=== PATIENT | male | born 1970 | race Hispanic/Latino ===

== ENCOUNTER 2017-04-30 14:01 | Inpatient (IN) | payer OTHER ==
[2017-04-30 14:07] VITALS: O2SAT 99
--- NOTE | 2017-04-30 15:18 | RAD ---
HISTORY: clearance COMPARISON: No prior. FINDINGS: LUNGS: No active pulmonary disease. PLEURA: No significant pleural effusion identified, no pneumothorax apparent. CARDIOVASCULAR: Normal. OSSEOUS STRUCTURES: No significant abnormalities. VISUALIZED UPPER ABDOMEN: Normal. OTHER FINDINGS: None. IMPRESSION: No active disease.
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
[2017-04-30 15:55] LABS: BASO % 0.2 % (0.0-2.0); HEMATOCRIT 38.6 % (35.0-51.0); LYMPH % 11.5 % (20.0-40.0); MEAN CELL VOLUME 101.6 fl (80.0-94.0); MEAN CORPUSCULAR HEMOGLOBIN 33.4 pg (27.0-31.0); MEAN CORPUSCULAR HGB CONC 32.9 g/dL (33.0-37.0); MEAN PLATELET VOLUME 8.5 fl (7.2-11.7); MONO # 0.8 K/uL (0.0-0.8); MONO % 9.2 % (0.0-10.0); NEUT % 79.1 % (50.0-75.0); NRBC % 0.1 % (0.0-0.0); WHITE BLOOD COUNT 8.8 K/uL (4.8-10.8)
[2017-04-30 16:13] LABS: ALB/GLOB RATIO 1.6 (1.0-2.1); ALCOHOL SERUM < 10 mg/dl (0-10); ALKALINE PHOSPHATASE 63 U/L (38-126); ALT/SGPT 77 U/L (21-72); AST/SGOT 72 U/L (17-59); BILIRUBIN,TOTAL 0.9 mg/dl (0.2-1.3); BLOOD UREA NITROGEN 16 mg/dl (9-20); CALCIUM 8.8 mg/dL (8.4-10.2); CARBON DIOXIDE 22 mmol/L (22-30); CHLORIDE 107 mmol/L (98-107); GFR AFRICAN-AMERICAN > 60; GLUCOSE,RANDOM 89 mg/dL (75-110); POTASSIUM 3.6 MMOL/L (3.6-5.0); SODIUM 142 mmol/l (132-148); TOTAL PROTEIN 6.7 G/DL (6.3-8.2)
--- NOTE | 2017-04-30 16:44 | CT ---
PROCEDURE: CT HEAD WITHOUT CONTRAST. HISTORY: trauma COMPARISON: Comparison is made to the previous study dated 07/12/2013 TECHNIQUE: Axial computed tomography images were obtained through the head/brain without intravenous contrast. Radiation dose: Total exam DLP = 1267.97 mGy-cm. This CT exam was performed using one or more of the following dose reduction techniques: Automated exposure control, adjustment of the mA and/or kV according to patient size, and/or use of iterative reconstruction technique. FINDINGS: HEMORRHAGE: No intracranial hemorrhage. BRAIN: No mass effect or edema. No atrophy or chronic microvascular ischemic changes. VENTRICLES: Unremarkable. No hydrocephalus. CALVARIUM: Unremarkable. PARANASAL SINUSES: Unremarkable as visualized. No significant inflammatory changes. MASTOID AIR CELLS: Unremarkable as visualized. No inflammatory changes. OTHER FINDINGS: None. IMPRESSION: No evidence of acute intracranial hemorrhage intracranial collection mass effect or midline shift.
[2017-04-30 19:54] LABS: RBC URINE 2 /hpf (0-3); URINE BACTERIA RARE (<OCC); URINE BILIRUBIN NEGATIVE (NEGATIVE); URINE BLOOD NEGATIVE (NEGATIVE); URINE COLOR YELLOW (YELLOW); URINE GLUCOSE (UA) NEG (Normal); URINE KETONE 80 mg/dL (NEGATIVE); URINE LEUKOCYTE ESTERASE NEG Leu/uL (Negative); URINE PROTEIN 30 mg/dL (NEGATIVE); WBC URINE 1 /hpf (0-5)
[2017-05-01] MEDS ORDERED: DiphenhydrAMINE 50 mg/ml Inj IM PRN (03:07)
[2017-05-01] MEDS ORDERED: Magnesium Hydroxide Susp 30 ml UD PO PRN (03:07)
[2017-05-01] MEDS ORDERED: Alum-Mag Hydrox-Simethicone Susp (30 mL) PO PRN (03:07)
[2017-05-01 07:49] LABS: T4 11.2 ug/dl (5.5-11.0)
[2017-05-01 08:02] LABS: THYROID STIMULATING HORMONE 1.84 mIU/ML (0.46-4.68)
--- NOTE | 2017-05-01 10:49 | CARD ---
APPROVED REPORT EKG Measurement Heart [id number] <Conclusion> Normal sinus rhythm Normal ECG
--- NOTE | 2017-05-01 11:22 | CP.PCM.CON ---
History of Present Illness - History of Present Illness History of Present Illness: 46 yo male admitted to psyche unit because of erratic and combative behaviour. Review of Systems - Review of Systems All systems: reviewed and no additional remarkable complaints except (aside from those mentioned above, 12 point system review were negative by me) Past Patient History - Past Social History Smoking Status: Current Some Days Smoker Alcohol: Occasional Drugs: Denies - CARDIAC Hx Cardiac Disorders: No - PULMONARY Hx Respiratory Disorders: No Hx Tuberculosis: No - NEUROLOGICAL Hx Neurological Disorder: No HX Cerebrovascular Accident: No Hx Seizures: No - HEENT Other/Comment: very poor vision; requires glasses - RENAL Hx Chronic Kidney Disease: No - ENDOCRINE/METABOLIC Hx Endocrine Disorders: No - HEMATOLOGICAL/ONCOLOGICAL Hx Blood Disorders: No Hx Cancer: No Hx Human Immunodeficiency Virus (HIV): No - INTEGUMENTARY Other/Comment: skin is mottled; sts these are bruises from yoga positions - MUSCULOSKELETAL/RHEUMATOLOGICAL Hx Musculoskeletal Disorders: No - GASTROINTESTINAL Hx Gastrointestinal Disorders: No - GENITOURINARY/GYNECOLOGICAL Hx Sexually Transmitted Disorders: No - PSYCHIATRIC Hx Schizophrenia: Yes Hx Substance Use: Yes (mj) - SURGICAL HISTORY Hx Surgeries: No - ANESTHESIA Hx Anesthesia: No Meds Allergies/Adverse Reactions: Allergies Allergy/AdvReac Type Severity Reaction Status Date / Time No Known Allergies Allergy Verified 04/30/17 14:04 - Medications Medications: Current Medications Acetaminophen (Tylenol 325mg Tab) 650 mg PO Q4 PRN PRN Reason: pain level 1-7 Al Hydrox/Mg Hydrox/Simethicone (Maalox Plus 30 Ml) 30 ml PO Q4 PRN PRN Reason: Dyspepsia Diphenhydramine HCl (Benadryl) 50 mg IM Q6 PRN PRN Reason: Extrapyramidal S/S Unable PO Diphenhydramine HCl (Benadryl) 50 mg PO Q6 PRN PRN Reason: Extrapyramidal Symptoms Diphenhydramine HCl (Benadryl) 50 mg PO HS PRN PRN Reason: Sleep Haloperidol (Haldol) 5 mg PO Q4 PRN PRN Reason: Agitation Haloperidol Lactate (Haldol) 5 mg IM Q4 PRN PRN Reason: Agitation, Unable to Take PO Lorazepam (Ativan) 2 mg IM Q4 PRN PRN Reason: Anxiety/Agitation,Unable PO Lorazepam (Ativan) 2 mg PO Q4 PRN PRN Reason: Anxiety/Agitation Magnesium Hydroxide (Milk Of Magnesia) 30 ml PO HS PRN PRN Reason: Constipation Physical Exam - Constitutional Appears: No Acute Distress - Head Exam Head Exam: ATRAUMATIC - Eye Exam Eye Exam: absent: Scleral icterus - ENT Exam ENT Exam: Mucous Membranes Moist - Neck Exam Neck exam: Negative for: Meningismus - Respiratory Exam Respiratory Exam: absent: Rhonchi, Wheezes, Respiratory Distress - Cardiovascular Exam Cardiovascular Exam: REGULAR RHYTHM, +S1, +S2 - GI/Abdominal Exam GI & Abdominal Exam: Soft. absent: Tenderness - Rectal Exam Rectal Exam: Deferred - Extremities Exam Extremities exam: Negative for: pedal edema - Back Exam Back exam: NORMAL INSPECTION - Neurological Exam Neurological exam: Alert, Oriented x3 - Psychiatric Exam Psychiatric exam: Normal Affect - Skin Skin Exam: Dry, Intact Results - Vital Signs Recent Vital Signs: Last Vital Signs Temp 98.3 F 04/30/17 14:04 Pulse 81 04/30/17 22:49 Resp 18 04/30/17 14:04 BP 145/83 04/30/17 14:04 Pulse Ox 99 04/30/17 21:33 - Labs Result Diagrams: 04/30/17 15:30 04/30/17 15:30 Labs: Laboratory Results - last 24 hr 05/01/17 07:02 Triglycerides 55 Cholesterol 90 LDL Cholesterol Direct 46 HDL Cholesterol 35 Thyroxine (T4) 11.2 H TSH 3rd Generation 1.84 Assessment & Plan (1) Schizophrenia Status: Acute Comment: psyche is managing
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
--- NOTE | 2017-05-02 16:08 | PCM.PYCHPN ---
Psychiatric Progress Note - Psychiatric Progress Note Patient seen today, length of contact: chart review case discusssed with team Patient Chief Complaint: not really sure neighbors called the header up 2nd to teacup dropping from window (pt 's) Problems Identified/Issues Discussed: alteration in cognition behavior self Medical Problems: per chart Diagnostic Results: per psychiatry per medicine per nursing per social work DSM 5 Symptoms Update: alteration in behavior, paranoia, reportedly throwing things from window, spreading feces over valles of apartment Medication Change: Yes (risperidone 0.5mg po hs) Medical Record Reviewed: Yes Mental Status Examination - Cognitive Function Orientation: Person, Place, Time Attention: WNL Concentration: WNL Association: WNL Fund of Knowledge: WNL - Mood Mood: Other (denies ?paranoia) - Affect Affect: Constricted - Formal Thought Process Formal Thought Process: Paranoia - Homicidal Ideation Homicidal Ideation: No Goal/Treatment Plan - Goal/Treatment Plan Need for Continued Stay: Remain at risks for inpatient hospitalization, Severe functional impairment Progress Toward Problem(s) and Goals/Treatment Plan: inpt milieu vital signs and clinical observation per protocol and per clinical status hospitalist consult pt defers need for inpt admission-admission presentation was discussed with pt by team--pt requests to submit a 48 hr notice-48hr notice explained to pt including possible screening for involuntary admission, ability to recind 48 hr notice + teach back noted-pt submitted 48 hr notice per staff will end [phone] [id number] prn medications in case of changes in clinical acute status and or pt request discharge planning in progress Estimated Date of D/C: 05/07/17 - Smoking Cessation Smoking Cessation Initiated: No Reason for not providing: deferred
[2017-05-02 20:48] VITALS: RESP 18
[2017-05-03 10:42] VITALS: BP 104/72; PULSE 89; TEMP 97.3
--- NOTE | 2017-05-03 11:17 | PCM.PYCHPN ---
Psychiatric Progress Note - Psychiatric Progress Note Patient seen today, length of contact: in treatment team Patient Chief Complaint: you can talk to dr. connell, he will clear my name Problems Identified/Issues Discussed: pt refusing medications. has signed a 48 hour notice. paranoid and not willing to talk to the treatment team today. refused to sign treatment team. wanted this loan underwriter to only talk to regis connell, and pt refused to answer any questions about his prior hosptializations or treatment. family has called to [facility] and left messages of concern for pt and family safety if he is discharged. (apparently were not available when screener called at 4am to provide collateral.) pt minimizing symptoms; recent erratic behaviors reported- throwing things out window, spreading feces on valles of home, family evicted, etc. left message with dr. connell's voice mail. Medication Change: No (risperidone 0.5mg po hs pt refusing) Medical Record Reviewed: Yes Mental Status Examination - Cognitive Function Orientation: Person, Place, Time Memory: Intact Attention: WNL Concentration: WNL Association: WNL Fund of Knowledge: WNL Decription of patient's judgement and insights: poor i/j - Mood Mood: Other (irritated) - Affect Affect: Blunted - Speech Speech: Appropriate - Formal Thought Process Formal Thought Process: Paranoia Psychotic Thoughts and Behaviors: grossly disorganized behaviors in the community. - Suicidal Ideation Suicidal Ideation: No - Homicidal Ideation Homicidal Ideation: No Goal/Treatment Plan - Goal/Treatment Plan Need for Continued Stay: Remain at risks for inpatient hospitalization, Severe functional impairment Progress Toward Problem(s) and Goals/Treatment Plan: schizophrenia, paranoid type pt refusing medications family concerned with pt's safety pt not agreeing or participating in treatment. unable to reach his outpt provider directly. pt appears to be a danger to self/other and risk if discharged to community- will rescreen for [facility] involuntary assessment encourage pt to participate in treatment Estimated Date of D/C: 05/07/17
--- NOTE | 2017-05-03 16:21 | PCM.PYCHDC ---
Mental Status Examination - Mental Status Examination Orientation: Person, Place, Situation, Time Memory: Intact Mood: Anxious Affect: Blunted Speech: Appropriate Attention: Poor Concentration: WNL Association: Loose Fund of Knowledge: WNL Formal Thought Process: Paranoia, Loosening of associations Description of patient's judgement and insight: poor i/j, minimizing behaviors Psychotic Thoughts and Behaviors: grossly disorganized behaviors in the community., patient is paranoid, not agreeing to assessment or treatment. Suicidal Ideation: No Current Homicidal Ideation?: No Plan: pt is denying any suicidal or homicidal thoughts/plan or intent Discharge Summary - Discharge Note Reason for Hospitalization: bizarre behaviors at home leading to family being asked to leave their apartment by landlord. pt apparently throwing objects out window- pt denies Laboratory Data: Abnormal Lab Results 05/01/17 07:02 Hemoglobin A1c 5.5 Consultations:: List each consultation separately and include: 1. Reason for request. 2. Findings. 3. Follow-up Consultations: screened 2 x by [facility]. called dr. regis connell at pt's request, but no return call as of time of discharge. seen by hospitalist Summary of Hospital Course include:: 1. Description of specific treatment plan utilized for patients during their course of treatmen. 2. Summarize the time- course for resolution of acute symptoms and/or regressed behaviors. 3. Describe issues identified and worked on during hospitalization. 4. Describe medication utilized. 5. Describe medical problems identified and treated. 6. Reassessment of suicide risk Summary of Hospital Course: pt was admitted to [facility] and oriented to the unit. pt was placed on routine safety protocols. pt was started on medications- risperdal, but refused to take them. pt tried to elope on two different occasions from the unit on the weekend. pt was refusing to sign his treatment plan and refused to talk about his mental health history with the treatment team. pt submitted a 48 hour notice upon admission. he was screened twice and not found by [facility] screeners to meet criteria for involuntary hospitalization. as the patient was calm, denying suicidal or homicidal thoughts, and despite his paranoid thoughts was not posing an immediate risk to harm self or others, he was discharged as his 48 hour notice . i discussed the AMA form with the pt- benefits of staying included medications and therapy to stabilize his paranoid thoughts, help improve insight and stabilize behaviors as well as to arrange appropriate aftercare. risks explained included continued paranoid thoughts, behavioral decompensation with loss of housing and continued alienation from family/neighbors and possible harm to property and self. pt signed himself out of the hospital against medical advice. no medication prescriptions were given as pt was refusing medications. if pt re-presents or is re-referred to the ER he should be screened for involuntary hospitalization at that time - Final Diagnosis (DSM 5) Condition upon Discharge: STABLE DSM 5: schizophrenia, paranoid type Disposition: AGAINST MEDICAL ADVICE Follow-up Treatment Plan: schizophrenia, paranoid type pt refusing medications family concerned with pt's safety pt not agreeing or participating in treatment. unable to reach his outpt provider directly. pt appears to be a danger to self/other and risk if discharged to community- will rescreen for [facility] involuntary assessment encourage pt to participate in treatment - Smoking Cessation Smoking Cessation Medication prescribed: No Reason for not providing: declines any treatment - Antipsychotic Medications Pt discharged on 2 or more routine antipsychotic medications: No - Justification for 2 or more meds Justification other than those listed above:: pt is refusing all medications
== END 2017-05-03 16:15 | disposition left against medical advice (07) | DRG 430 ==
LOC: H.ER 14:01 → H.EROBSV 14:23 → OBSVTOIN 21:05 → H.ERHOLD 21:40 → H.PSYCH 22:40
PROVIDERS: ADMIT Psychiatry & Neurology Psychiatry; ATTEND Psychiatry & Neurology Psychiatry
DX: F20.0 Paranoid schizophrenia (principal); F17.210 Nicotine dependence, cigarettes, uncomplicated

== ENCOUNTER 2017-05-09 00:59 | Emergency (ER) | payer SELFPAY ==
[2017-05-09 01:07] VITALS: BP 126/58; PULSE 75; RESP 18; TEMP 98.4; O2SAT 99
[2017-05-09 01:40] LABS: BASO % 0.4 % (0.0-2.0); EOS # 0.1 K/uL (0.0-0.7); EOS % 1.4 % (0.0-4.0); HEMATOCRIT 37.9 % (35.0-51.0); LYMPH # 1.9 K/uL (1.0-4.3); LYMPH % 22.8 % (20.0-40.0); MEAN CELL VOLUME 102.6 fl (80.0-94.0); MEAN CORPUSCULAR HEMOGLOBIN 34.7 pg (27.0-31.0); MEAN CORPUSCULAR HGB CONC 33.8 g/dL (33.0-37.0); MEAN PLATELET VOLUME 7.6 fl (7.2-11.7); MONO # 0.7 K/uL (0.0-0.8); MONO % 8.4 % (0.0-10.0); NEUT # 5.6 K/uL (1.8-7.0); NRBC % 0.1 % (0.0-0.0); RED CELL DISTRIBUTION WIDTH 14.2 % (11.5-14.5); WHITE BLOOD COUNT 8.3 K/uL (4.8-10.8)
[2017-05-09 01:48] LABS: ALB/GLOB RATIO 1.5 (1.0-2.1); ALCOHOL SERUM < 10 mg/dl (0-10); ALKALINE PHOSPHATASE 62 U/L (38-126); ALT/SGPT 58 U/L (21-72); AST/SGOT 33 U/L (17-59); BILIRUBIN,TOTAL 0.2 mg/dl (0.2-1.3); BLOOD UREA NITROGEN 12 mg/dl (9-20); CARBON DIOXIDE 22 mmol/L (22-30); CHLORIDE 108 mmol/L (98-107); GFR AFRICAN-AMERICAN > 60; GLUCOSE,RANDOM 94 mg/dL (75-110); POTASSIUM 4.5 MMOL/L (3.6-5.0); SODIUM 138 mmol/l (132-148); TOTAL PROTEIN 6.5 G/DL (6.3-8.2)
--- NOTE | 2017-05-09 01:49 | ED PDOC ---
HPI: Psych/Substance Abuse Time Seen by Provider: 05/09/17 01:10 Chief Complaint (Nursing): Medical Clearance Chief Complaint (Provider): Psychiatric evaluation History Per: Patient, EMS History/Exam Limitations: no limitations Onset/Duration Of Symptoms: Hrs (patient has been under arrest for 4x hours.) Current Symptoms Are (Timing): Still Present Severity: Moderate Associated Symptoms: denies: Suicidal Thoughts, Suicidal Plan Additional Complaint(s): 46 year old male with a pertinent medical history of schizophrenia is brought into the ED by EMS for a psychiatric evaluation and medical clearance. Patient has been under arrest for the past 4x hours for shoplifting at 7[address]. He admits to drinking 2x glasses of wine prior to that. On 05/03/2017, he was discharged from this hospital for schizophrenia. He has not followed up with his psychiatrist since his discharge, but has an appointment for 05/12/2017. He denies having suicidal ideations and homicidal ideations, PMD: not provided Past Medical History Reviewed: Historical Data, Nursing Documentation, Vital Signs Vital Signs: Last Vital Signs Temp 98.4 F 05/09/17 01:02 Pulse 75 05/09/17 01:02 Resp 18 05/09/17 01:02 BP 126/58 L 05/09/17 01:02 Pulse Ox 99 05/09/17 01:02 - Medical History PMH: Schizophrenia Denies: Diabetes, Hepatitis, HIV, HTN, Chronic Kidney Disease, Seizures, Sexually Transmitted Disease - Surgical History Surgical History: No Surg Hx - Family History Family History: States: Unknown Family Hx - Social History Current smoker - smoking cessation education provided: Yes Alcohol: Occasional Drugs: Denies - Home Medications Home Medications: Ambulatory Orders Medication Instructions Recorded No Known Home Med 04/30/17 - Allergies Allergies/Adverse Reactions: Allergies Allergy/AdvReac Type Severity Reaction Status Date / Time No Known Allergies Allergy Verified 04/30/17 14:04 Review of Systems ROS Statement: Except As Marked, All Systems Reviewed And Found Negative Psych: Negative for: Suicidal ideation, Other (homicidal ideation) Physical Exam - Reviewed Nursing Documentation Reviewed: Yes Vital Signs Reviewed: Yes - Physical Exam Appears: Positive for: Well, Non-toxic, No Acute Distress Head Exam: Positive for: ATRAUMATIC, NORMOCEPHALIC Skin: Positive for: Normal Color, Warm, Dry Eye Exam: Positive for: EOMI, PERRL, Conjunctival injection ENT: Positive for: Other (tacky mucous membranes) Neck: Positive for: Normal, Supple Cardiovascular/Chest: Positive for: Regular Rate, Rhythm Respiratory: Positive for: Normal Breath Sounds. Negative for: Respiratory Distress Gastrointestinal/Abdominal: Positive for: Normal Exam, Soft. Negative for: Tenderness Extremity: Positive for: Normal ROM. Negative for: Deformity, Swelling Neurologic/Psych: Positive for: Alert, Oriented (3x) - Laboratory Results Result Diagrams: 05/09/17 01:32 05/09/17 01:32 - ECG O2 Sat by Pulse Oximetry: 99 (RA) Pulse Ox Interpretation: Normal Medical Decision Making Medical Decision Makin:10 Initial impression: 46 year old male with schizophrenia by history and alcohol intoxication. Initial plan: * alcohol serum * CMP * drug screen urinary * udip * CBC * crisis evaluation as ordered * reevaluation Scribe Attestation: Documented by Elena Hemphill, acting as a scribe for Shirley Roman MD. Provider Scribe Attestation: All medical record entries made by the Scribe were at my direction and personally dictated by me. I have reviewed the chart and agree that the record accurately reflects my personal performance of the history, physical exam, medical decision making, and the department course for this patient. I have also personally directed, reviewed, and agree with the discharge instructions and disposition. Disposition - Clinical Impression Clinical Impression: Schizophrenia Counseled Patient/Family Regarding: Diagnosis - Disposition Disposition: Routine/Home Disposition Time: 02:42 Condition: STABLE Additional Instructions: MEDICALLY AND PSYCHIATRICALLY STABLE FOR INCARCERATION Follow up as scheduled with your psychiatrist Instructions: Schizophrenia (ED)
== END 2017-05-09 03:01 | disposition home or self-care (01) ==
LOC: H.ER 00:59
DX: F20.9 Schizophrenia, unspecified (principal)
CPT/HCPCS: 80053; 85025; 99281; G0480

== ENCOUNTER 2017-05-11 23:07 | Emergency (ER) | payer OTHER ==
[2017-05-11 23:41] VITALS: BP 137/84; PULSE 93; RESP 16; TEMP 98; O2SAT 100
--- NOTE | 2017-05-12 00:17 | ED PDOC ---
HPI: General Adult Time Seen by Provider: 05/11/17 23:20 Chief Complaint (Nursing): Psychiatric Evaluation Chief Complaint (Provider): psych eval History Per: Patient History/Exam Limitations: no limitations Onset/Duration Of Symptoms: Mins Have you had recent travel within the past 21 days to any of the following countries: [place], [place], [place] or [place]?: No Current Symptoms Are (Timing): Better Additional Complaint(s): 46yo male with PMHx of schizophrenia, released from senior living this morning, presents to the ED to "verify that he is ok." Denies hallucinations, SI, HI, or any medical complaints. Of note, patient required restraints before provider interview due to agitation. Calm and cooperative upon provider interview. Past Medical History Reviewed: Historical Data, Nursing Documentation, Vital Signs Vital Signs: Last Vital Signs Temp 98.0 F 05/11/17 23:39 Pulse 93 H 05/11/17 23:39 Resp 16 05/11/17 23:39 BP 137/84 05/11/17 23:39 Pulse Ox 100 05/12/17 00:23 - Medical History PMH: Schizophrenia Denies: Diabetes, Hepatitis, HIV, HTN, Chronic Kidney Disease, Seizures, Sexually Transmitted Disease - Surgical History Surgical History: No Surg Hx - Family History Family History: States: No Known Family Hx - Social History Current smoker - smoking cessation education provided: Yes Alcohol: Occasional Drugs: Cannabis - Home Medications Home Medications: Ambulatory Orders Medication Instructions Recorded No Known Home Med 04/30/17 - Allergies Allergies/Adverse Reactions: Allergies Allergy/AdvReac Type Severity Reaction Status Date / Time No Known Allergies Allergy Verified 04/30/17 14:04 Review of Systems ROS Statement: Except As Marked, All Systems Reviewed And Found Negative Psych: Positive for: Other (no HI, no hallucinations ). Negative for: Suicidal ideation Physical Exam - Reviewed Nursing Documentation Reviewed: Yes Vital Signs Reviewed: Yes - Physical Exam Appears: Positive for: No Acute Distress (poor hygiene ) Head Exam: Positive for: ATRAUMATIC, NORMAL INSPECTION, NORMOCEPHALIC Skin: Positive for: Normal Color, Warm, Dry Cardiovascular/Chest: Positive for: Regular Rate, Rhythm. Negative for: Murmur , Tachycardia Respiratory: Positive for: Normal Breath Sounds. Negative for: Wheezing, Respiratory Distress Gastrointestinal/Abdominal: Positive for: Normal Exam, Soft. Negative for: Tenderness Extremity: Positive for: Normal ROM. 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 Patient evaluated and cleared by crisis with diagnosis of cannabis abuse as per Dr. Sofia. Patient stable for d/c. Advised to f/u w/ his PCP and psychiatrist and return to the ED with any worsening or concerning symptoms. Scribe Attestation: Documented by Chad Giordano acting as a scribe for Micheline Hampton MD. Provider Scribe Attestation: All medical record entries made by the Scribe were at my direction and personally dictated by me. I have reviewed the chart and agree that the record accurately reflects my personal performance of the history, physical exam, medical decision making, and the department course for this patient. I have also personally directed, reviewed, and agree with the discharge instructions and disposition. Disposition - Clinical Impression Clinical Impression: Cannabis abuse - Patient ED Disposition Is Patient to be Admitted: No Counseled Patient/Family Regarding: Studies Performed, Diagnosis, Need For Followup - Disposition Disposition: Routine/Home Disposition Time: 00:15 Condition: IMPROVED Additional Instructions: follow up with your primary doctor and psychiatrist return to the ED with any worsening or concerning symptoms. Instructions: Cannabis Abuse (ED)
== END 2017-05-12 00:40 | disposition home or self-care (01) ==
LOC: H.ER 23:07
DX: F12.10 Cannabis abuse, uncomplicated (principal); F20.9 Schizophrenia, unspecified; Z78.1 Physical restraint status

== ENCOUNTER 2017-05-12 13:06 | Observation (INO) | payer OTHER ==
--- NOTE | 2017-05-12 13:32 | ED PDOC ---
HPI: Psych/Substance Abuse Time Seen by Provider: 05/12/17 13:20 Chief Complaint (Nursing): Psychiatric Evaluation Chief Complaint (Provider): Psychiatric Evaluation History Per: Patient History/Exam Limitations: no limitations Onset/Duration Of Symptoms: Days Current Symptoms Are (Timing): Still Present Additional Complaint(s): 46 y/o male presents to the emergency department via EMS after noted to act in a bizarre behavior while throwing furniture out his window prior to arrival. Patient was also thought to be turning gas burners on in vacant apartment. Health inspector pawnshop detail stated that residence is uninhabitable.. Denies suicidal or homicidal ideation and auditory or visual hallucinations. Past Medical History Reviewed: Historical Data, Nursing Documentation, Vital Signs Vital Signs: Last Vital Signs Temp 99 F 05/12/17 13:08 Pulse 70 05/12/17 13:08 Resp 18 05/12/17 13:08 BP 116/61 05/12/17 13:08 Pulse Ox 99 05/12/17 13:08 - Medical History PMH: Schizophrenia Denies: Diabetes, Hepatitis, HIV, HTN, Chronic Kidney Disease, Seizures, Sexually Transmitted Disease - Surgical History Surgical History: No Surg Hx - Family History Family History: States: Unknown Family Hx - Living Arrangements Living Arrangements: With Family - Social History Current smoker - smoking cessation education provided: No Alcohol: None Drugs: Cannabis - Home Medications Home Medications: Ambulatory Orders Medication Instructions Recorded No Known Home Med 04/30/17 - Allergies Allergies/Adverse Reactions: Allergies Allergy/AdvReac Type Severity Reaction Status Date / Time No Known Allergies Allergy Verified 04/30/17 14:04 Review of Systems ROS Statement: Except As Marked, All Systems Reviewed And Found Negative Psych: Negative for: Suicidal ideation (or homicidal ideation), Other (auditory or visual hallucinations) Physical Exam - Reviewed Nursing Documentation Reviewed: Yes Vital Signs Reviewed: Yes - Physical Exam Appears: Positive for: Non-toxic, No Acute Distress Head Exam: Positive for: ATRAUMATIC, NORMAL INSPECTION, NORMOCEPHALIC Skin: Positive for: Normal Color, Warm, Dry Cardiovascular/Chest: Positive for: Regular Rate, Rhythm. Negative for: Murmur Respiratory: Positive for: Normal Breath Sounds. Negative for: Accessory Muscle Use, Respiratory Distress Neurologic/Psych: Positive for: Alert, Oriented - Laboratory Results Result Diagrams: 05/12/17 13:50 05/12/17 13:40 - ECG ECG Rhythm: Positive for: Sinus Rhythm (NSR 82BPM; NO ECTOPY NO ACUTE CHANGES NOTED.) O2 Sat by Pulse Oximetry: 99 (RA) Pulse Ox Interpretation: Normal - Progress ED Course And Treament: OLD ED RECORDS REVIEWED: Patient was seen in this emergency room on 05/09/2017, diagnosed with schizophrenia, and incarcerated. After patient was released from alf, he visited the emergency room again on 05/11/2017, diagnosed with cannabis abuse, advised to follow up with psychiatrist, and discharged home. CXR: NAD ativan 2 mg IM x [address] ROJAS ([facility] [place] DIAGNOSIS SCHIZOPHRENIA Medical Decision Making Medical Decision Making: Time: 13:20 Initial Impression: Psychiatric Evaluation Initial Plan: --Electrocardiogram STAT --Alcohol Serum STAT --COMP Metabolic Panel --Drug Screen, Urine --EKG-ED (EDNURTX) --CBC w/ differential --Chest Portable (RAD) --Urinalysis STAT --1:1 Observation CONT: Patient threat to self and others --Crisis Evaluation As Ordered --Reevaluation Time: 15:40 --Admit to hospital routine: ED Observation for acute pschotic episode under the care of Dr. Andrade Time: 16:40 --Restraint: Violent or harm to self/other and placed for combative behavior. Given Ativan 2mg IM without any improvement. Scribe Attestation: Documented by Alivia Garcia, acting as a scribe for Venkat Conway PA-C. Provider Scribe Attestation: All medical record entries made by the Scribe were at my direction and personally dictated by me. I have reviewed the chart and agree that the record accurately reflects my personal performance of the history, physical exam, medical decision making, and the department course for this patient. I have also personally directed, reviewed, and agree with the discharge instructions and disposition. ED OBSERVATION Date of observation admission: 05/12/17 Time of observation admission: 15:41 - Observation admission statement Patient is being placed in observation because:: MANAGEMENT/EVALUATION OF ACUTE PSYCHOTIC EPSIODE - Goals of Observation Goals of observation are:: PENDING BLOODWORK FOR ALCOHOL AND DRUGS. WILL HAVE CRISIS EVALUATE PATIENT. PATIENT MAY REQUIRE INVOLUNTARY ADMISSION AND TRANSFER TO [facility] Disposition - Clinical Impression Clinical Impression: Schizophrenia - Patient ED Disposition Is Patient to be Admitted: Transfer of Care - Disposition Disposition: Transfer of Care Disposition Time: 00:03 Condition: FAIR Patient Signed Over To: Rod Santana Handoff Comments: PENDING BED AVAILABILITY
[2017-05-12 14:00] LABS: BASO % 0.4 % (0.0-2.0); EOS # 0.1 K/uL (0.0-0.7); EOS % 0.7 % (0.0-4.0); HEMOGLOBIN 13.3 g/dL (12.0-18.0); LYMPH # 1.3 K/uL (1.0-4.3); LYMPH % 15.6 % (20.0-40.0); MEAN CELL VOLUME 102.1 fl (80.0-94.0); MEAN CORPUSCULAR HEMOGLOBIN 34.3 pg (27.0-31.0); MEAN CORPUSCULAR HGB CONC 33.6 g/dL (33.0-37.0); MEAN PLATELET VOLUME 7.4 fl (7.2-11.7); MONO # 0.5 K/uL (0.0-0.8); MONO % 6.5 % (0.0-10.0); NEUT # 6.2 K/uL (1.8-7.0); NEUT % 76.8 % (50.0-75.0); RBC 3.86 Mil/uL (4.40-5.90); RED CELL DISTRIBUTION WIDTH 13.9 % (11.5-14.5)
[2017-05-12 14:13] LABS: ALB/GLOB RATIO 1.6 (1.0-2.1); ALBUMIN 4.2 g/dL (3.5-5.0); ALT/SGPT 66 U/L (21-72); AST/SGOT 57 U/L (17-59); BLOOD UREA NITROGEN 16 mg/dl (9-20); CALCIUM 9.2 mg/dL (8.4-10.2); GFR AFRICAN-AMERICAN > 60; GFR NON-AFRICAN AMERICAN > 60
--- NOTE | 2017-05-12 15:29 | RAD ---
HISTORY: ROUTINE COMPARISON: Chest x-ray performed 04/30/17 TECHNIQUE: Chest, one view. FINDINGS: LUNGS: No focal consolidation. Please note that chest x-ray has limited sensitivity for the detection of pulmonary masses. PLEURA: No significant pleural effusion identified. No definite pneumothorax . CARDIOVASCULAR: The cardiomediastinal silhouette appears within normal limits of size. OSSEOUS STRUCTURES: Degenerative changes. VISUALIZED UPPER ABDOMEN: Unremarkable. OTHER FINDINGS: None. IMPRESSION: No focal consolidation, significant pleural effusion, or definite pneumothorax identified.
[2017-05-12 17:05] LABS: BARBITURATES, UR NEGATIVE (NEGATIVE); BENZODIAZEPINES, UR POSITIVE (NEGATIVE); OPIATES, UR NEGATIVE (NEGATIVE); PHENCYCLIDINE, UR NEGATIVE (NEGATIVE); SQUAMOUS EPITHIAL < 1 /hpf (0-5); URINE BACTERIA RARE (<OCC); URINE BILIRUBIN NEGATIVE (NEGATIVE); URINE BLOOD NEGATIVE (NEGATIVE); URINE CLARITY CLEAR (Clear); URINE COLOR YELLOW (YELLOW); URINE GLUCOSE (UA) NEG (Normal); URINE LEUKOCYTE ESTERASE NEG Leu/uL (Negative); URINE NITRATE NEGATIVE (NEGATIVE); URINE PROTEIN NEGATIVE (NEGATIVE); URINE UROBILINOGEN 0.2-1.0 mg/dL (0.2-1.0); WBC CLUMPS RARE /hpf
--- NOTE | 2017-05-12 23:54 | ED PDOC ---
- Laboratory Results Result Diagrams: 05/12/17 13:50 05/12/17 13:40 - ECG O2 Sat by Pulse Oximetry: 99 (RA) Medical Decision Making Medical Decision Making: Patient s/o from Venkat Conway PA-C at 0000 pending [facility] bed availability. Patient s/o to Dr. Hampton at 0700 pending [facility] bed availability. Scribe Attestation: Documented by Chad Giordano acting as a scribe for Rod Santana MD. Provider Scribe Attestation: All medical record entries made by the Scribe were at my direction and personally dictated by me. I have reviewed the chart and agree that the record accurately reflects my personal performance of the history, physical exam, medical decision making, and the department course for this patient. I have also personally directed, reviewed, and agree with the discharge instructions and disposition. Disposition - Clinical Impression Clinical Impression: Schizophrenia - POA Present On Arrival: None - Disposition Disposition: Transfer of Care Disposition Time: 15:40 Condition: STABLE Patient Signed Over To: Micheline Hampton Handoff Comments: pending [facility] bed availability
--- NOTE | 2017-05-13 07:16 | ED PDOC ---
- Laboratory Results Result Diagrams: 05/12/17 13:50 05/12/17 13:40 - ECG O2 Sat by Pulse Oximetry: 99 (RA) Pulse Ox Interpretation: Normal Medical Decision Making Medical Decision Making: Receiving Sign Out: Pt signed out to me by Dr. Santana pending [facility] bed availability. pt resting in bed in no distress signout [address] Jimenez pending [facility] bed availability Scribe Attestation: Documented by Palmira Davis acting as a scribe for Micheline Hampton MD. Provider Attestation: All medical record entries made by the Scribe were at my direction and personally dictated by me. I have reviewed the chart and agree that the record accurately reflects my personal performance of the history, physical exam, medical decision making, and the department course for this patient. I have also personally directed, reviewed, and agree with the discharge instructions and disposition. Disposition - Clinical Impression Clinical Impression: Schizophrenia - POA Present On Arrival: None - Disposition Disposition: Transfer of Care Disposition Time: 15:03 Condition: STABLE Patient Signed Over To: Jose Luis Jimenez (pend [facility]) Progress Note - Review of Symptoms Events since last encounter: 1148 Pt seen and evaluated by podiatry for blisters on feet.
--- NOTE | 2017-05-13 11:24 | CP.PCM.CON ---
History of Present Illness - History of Present Illness History of Present Illness: 46 year old unkempt male patient with PMHx of schizophrenia seen at bedside in ED as a podiatry consult for painful blisters to both feet. Patient states he has been wearing new shoes without socks since Wednesday. Patient states he noticed the blisters develop late Wednesday which he believes is from his new shoes. Patent reports pain 6/10 to all blisters. Patient denies taking any medications to alleviate the pain. Patient is also complaining of painful ingrown toenails to bilateral great toes. Patient Patient denies N/V/F/C/D/ SOB. No other pedal complaints at this time. PMHx: Schizophrenia PSH: N/A FH: noncontributory to chief complaint Meds: None All: NKDA Review of Systems - Review of Systems Review of Systems: 14 point ROS negative except as listed in HPI Past Patient History - Past Social History Alcohol: None Drugs: Cannabis - CARDIAC Hx Hypertension: No - PULMONARY Hx Tuberculosis: No - NEUROLOGICAL Hx Seizures: No - HEENT Other/Comment: very poor vision; requires glasses - RENAL Hx Chronic Kidney Disease: No - ENDOCRINE/METABOLIC Hx Endocrine Disorders: No - HEMATOLOGICAL/ONCOLOGICAL Hx Human Immunodeficiency Virus (HIV): No - INTEGUMENTARY Other/Comment: skin is mottled; sts these are bruises from yoga positions - MUSCULOSKELETAL/RHEUMATOLOGICAL Hx Musculoskeletal Disorders: No - GASTROINTESTINAL Hx Gastrointestinal Disorders: No - GENITOURINARY/GYNECOLOGICAL Hx Sexually Transmitted Disorders: No - PSYCHIATRIC Hx Schizophrenia: Yes - SURGICAL HISTORY Hx Surgeries: No - ANESTHESIA Hx Anesthesia: No Meds Allergies/Adverse Reactions: Allergies Allergy/AdvReac Type Severity Reaction Status Date / Time No Known Allergies Allergy Verified 04/30/17 14:04 Physical Exam - Constitutional Appears: Well, Non-toxic, No Acute Distress, Unkempt - Extremities Exam Additional comments: Vasc: DP and PT pulses palpable 2/4 b/l. CFT <3 seconds to all digits x10. TG warm to warm. Nonpitting edema noted to right foot. Neuro: Gross sensation intact. Derm: 4 x 3 cm fluid filled bullae noted sub met 2&3 that once lanced expressed clear fluid. Fluid filled blisters to distal aspects of 2nd and 3rd digits of right foot, 3rd and 4th digits of left foot. Hyperkeratotic lesion noted sub met 2&3 of right foot. Medial nail borders of nail 1 b/l appear incurvated. Elongated nail 5 b/l. Ortho: Pain on palpation to bullae. Pain on palpation to blisters x4. Pain on palpation medial nail border of nail 1 b/l. Pain on palpation to nail 5 b/l. - Neurological Exam Neurological exam: Alert, Oriented x3 - Psychiatric Exam Psychiatric exam: Normal Affect Results - Vital Signs Recent Vital Signs: Last Vital Signs Temp 97.0 F L 05/13/17 08:31 Pulse 68 05/13/17 08:31 Resp 19 05/13/17 08:31 BP 112/72 05/13/17 08:31 Pulse Ox 100 05/13/17 08:31 - Labs Result Diagrams: 05/12/17 13:50 05/12/17 13:40 Labs: Laboratory Results - last 24 hr 05/12/17 05/12/17 16:34 16:34 Urine Color Yellow Urine Clarity Clear Urine pH 6.0 Ur Specific [place] 1.012 Urine Protein Negative Urine Glucose (UA) Neg Urine Ketones Negative Urine Blood Negative Urine Nitrate Negative Urine Bilirubin Negative Urine Urobilinogen 0.2-1.0 Ur Leukocyte Esterase Neg Urine RBC (Auto) 4 H Urine WBC Clumps (Auto) Rare H Urine Microscopic WBC 1 Ur Squamous Epith Cells < 1 Urine Bacteria Rare Urine Opiates Screen Negative Urine Methadone Screen Negative Ur Barbiturates Screen Negative Ur Phencyclidine Scrn Negative Ur Amphetamines Screen Negative U Benzodiazepines Scrn Positive H U Oth Cocaine Metabols Negative U Cannabinoids Screen Positive H Assessment & Plan - Assessment and Plan (Free Text) Assessment: 46 year old male patient PMHx schizophrenia with painful friction bullae/ blisters, onychocryptosis nail 1 b/l, and incurvated nail 5 b/l Plan: Patient seen and evaluated. Discussed with attending, Dr. Mariee. Chart, labs, vitals reviewed: afebrile, WBC WNL. Bullae and blisters were cleansed with sterile saline and then lanced with a#15 blade; approximately 1cc of clear fluid was expressed. Bacitracin was applied to bullae and blisters, and were dressed with telfa, 4x4s , and rogerio. Slant back was performed to medial and lateral nail borders of nail 1 b/l without incident. Nail 5 b/l was debrided without incident. Advised patient to follow-up in podiatry clinic once discharged from [facility]. Recommend daily dressing changes to both feet at [facility] (bacitracin, nonadherent dressing, DSD). Recommend patient to wear surgical shoes to both feet if permitted on psychiatric floor. Stable from podiatry standpoint. Thank you for the consult, please re-consult as needed. Podiatry will sign off on this patient.
--- NOTE | 2017-05-13 11:32 | CARD ---
APPROVED REPORT EKG Measurement Heart [id number] <Conclusion> Normal sinus rhythm Right atrial enlargement Borderline ECG
--- NOTE | 2017-05-13 13:39 | CP.PCM.CON ---
History of Present Illness - History of Present Illness History of Present Illness: psychiatry consult ordered by protocol reason: schizophrenia cc: i need 4 packets of sugar and two packets of salt hpi: pt with history of schizophrenia. was admitted 04/30 to [facility] and signed out AMA after not found to meet critera for involuntary hospitalization by the screener from [facility]. he has been grossly decompensated and with poor insight. through his behaviors, he has lost his housing and apparently has been walking in the community and with severe blisters on his feet. he is adamantly denying that he has any mental illness. he asked, again, to have this life insurance underwriter speak to dr. angel "with whom i in good standing" (apparently, per reports pt has not seen this doctor in over a year- i had left a message a week ago or so with no reply) pt is bizarre, unkempt. responds to questions about how i could help by stating "give me 4 packets of sugar.... give me a pen..etc." he states he does not have a mental illness and wants to leave the hospital past psych: history of past hospitalizations/treatment for schizophrenia. currently not adherent to any treatment social history: was living with family, apparently is homeless now. pt guarded and not answering questions substance use: positive for benzos and cannabinoids. will not answer questions medical: seen by podiatry. stable. mse: alert, oriented x 3. dishevelled. bandaged feet. pt avoids eye contact. denies having mental illness. mood is "fine" appears internally preoccupied, intense affect. pt is paranoid and evasive in his answers to questions. denies si/hi. denies a/v hallucinations, but is with obvious disturbance of thoughts. unable to formally assess memeroy. poor i/j. assessment: schizophrenia, paranoid recommendation: would keep 1:1 for safety/elopement precautions until transfered to [facility] coul use prn haldol/ativan for agitation- 5mg haldol/2mg ativan po/im. pt awaiting transfer to [facility] Past Patient History - Past Social History Alcohol: None Drugs: Cannabis - CARDIAC Hx Hypertension: No - PULMONARY Hx Tuberculosis: No - NEUROLOGICAL Hx Seizures: No - HEENT Other/Comment: very poor vision; requires glasses - RENAL Hx Chronic Kidney Disease: No - ENDOCRINE/METABOLIC Hx Endocrine Disorders: No - HEMATOLOGICAL/ONCOLOGICAL Hx Human Immunodeficiency Virus (HIV): No - INTEGUMENTARY Other/Comment: skin is mottled; sts these are bruises from yoga positions - MUSCULOSKELETAL/RHEUMATOLOGICAL Hx Musculoskeletal Disorders: No - GASTROINTESTINAL Hx Gastrointestinal Disorders: No - GENITOURINARY/GYNECOLOGICAL Hx Sexually Transmitted Disorders: No - PSYCHIATRIC Hx Schizophrenia: Yes - SURGICAL HISTORY Hx Surgeries: No - ANESTHESIA Hx Anesthesia: No Meds Allergies/Adverse Reactions: Allergies Allergy/AdvReac Type Severity Reaction Status Date / Time No Known Allergies Allergy Verified 04/30/17 14:04 Results - Vital Signs Recent Vital Signs: Last Vital Signs Temp 97.0 F L 05/13/17 08:31 Pulse 68 05/13/17 08:31 Resp 19 05/13/17 08:31 BP 112/72 05/13/17 08:31 Pulse Ox 99 05/13/17 11:51 - Labs Result Diagrams: 05/12/17 13:50 05/12/17 13:40 Labs: Laboratory Results - last 24 hr 05/12/17 05/12/17 16:34 16:34 Urine Color Yellow Urine Clarity Clear Urine pH 6.0 Ur Specific Lyman 1.012 Urine Protein Negative Urine Glucose (UA) Neg Urine Ketones Negative Urine Blood Negative Urine Nitrate Negative Urine Bilirubin Negative Urine Urobilinogen 0.2-1.0 Ur Leukocyte Esterase Neg Urine RBC (Auto) 4 H Urine WBC Clumps (Auto) Rare H Urine Microscopic WBC 1 Ur Squamous Epith Cells < 1 Urine Bacteria Rare Urine Opiates Screen Negative Urine Methadone Screen Negative Ur Barbiturates Screen Negative Ur Phencyclidine Scrn Negative Ur Amphetamines Screen Negative U Benzodiazepines Scrn Positive H U Oth Cocaine Metabols Negative U Cannabinoids Screen Positive H
--- NOTE | 2017-05-13 15:18 | ED PDOC ---
- Laboratory Results Result Diagrams: 05/12/17 13:50 05/12/17 13:40 <Crystal,Aubrey - Last Filed: 05/15/17 02:09> - Laboratory Results Result Diagrams: 05/12/17 13:50 05/12/17 13:40 - ECG O2 Sat by Pulse Oximetry: 99 (RA) Pulse Ox Interpretation: Normal <Jose Luis Jimenez - Last Filed: 05/18/17 15:03> Medical Decision Making <Aubrey Rojas - Last Filed: 05/15/17 02:09> <Jose Luis Jimenez - Last Filed: 05/18/17 15:03> Medical Decision Making: Receiving Sign Out: Pt signed out to me by Dr. Hampton pending [facility] bed availability. Scribe Attestation: Documented by Palmira Davis acting as a scribe for Jose Luis Jimenez MD. Provider Attestation: All medical record entries made by the Scribe were at my direction and personally dictated by me. I have reviewed the chart and agree that the record accurately reflects my personal performance of the history, physical exam, medical decision making, and the department course for this patient. I have also personally directed, reviewed, and agree with the discharge instructions and disposition. [facility] accepted. (Jose Luis Jimenez) Disposition <Aubrey Rojas - Last Filed: 05/15/17 02:09> - POA Present On Arrival: None - Disposition Disposition: Other Institution Disposition Time: 15:03 <Jose Luis Jimenez - Last Filed: 05/18/17 15:03> - Clinical Impression Clinical Impression: Schizophrenia - Disposition Condition: STABLE
--- NOTE | 2017-05-14 02:01 | ED PDOC ---
- Laboratory Results Result Diagrams: 05/12/17 13:50 05/12/17 13:40 - ECG O2 Sat by Pulse Oximetry: 100 Medical Decision Making Medical Decision Makin Patient signed out to me from Dr. Jimenez pending transfer to [facility]. Patient stable, given valium for anxiety, APAP for foot pain. Awaiting bed at [facility]. Scribe Attestation: Documented by Eloisa English acting as a scribe for Aubrey Rojas MD. Scribe Attestation: All medical record entries made by the Scribe were at my direction and personally dictated by me. I have reviewed the chart and agree that the record accurately reflects my personal performance of the history, physical exam, medical decision making, and the department course for this patient. I have also personally directed, reviewed, and agree with the discharge instructions and disposition. Disposition - Clinical Impression Clinical Impression: Schizophrenia - POA Present On Arrival: None - Disposition Disposition: Transfer of Care Disposition Time: 07:00 Condition: STABLE
--- NOTE | 2017-05-14 14:23 | CP.PCM.PN ---
Subjective - Date & Time of Evaluation Date of Evaluation: 05/14/17 Time of Evaluation: 14:00 - Subjective Subjective: psych follow up cc: i am being discharged now hpi: pt is denying he is going to [facility]. he is demanding 4 sheets of paper, 7 packets of sugar, 2 pens, a pencil, a bucked of ice and two sterile bottles of saline. he denies having mental illness. he is refusing to consider medications or voluntary treatment. no aggression reported to this job specification writer. mse: alert, oriented to self, place, time. denies having mental illness. mood is anxious. affect odd. thoughts are disorganized. pt is internally preoccupied and paranoid. denies si/hi and denies any a/v hallucinations or thought disturbance. poor i/j. assessment: schizophrenia, paranoid recommendation: transfer to [facility] when bed available prn haldol and ativan as needed for agitation per yesterday's recs. Objective - Vital Signs/Intake and Output Vital Signs (last 24 hours): Temp Pulse Resp BP Pulse Ox 97.8 F 87 16 127/70 100 05/14/17 07:30 05/14/17 07:30 05/14/17 07:30 05/14/17 07:30 05/14/17 07:30
[2017-05-15 01:36] VITALS: BP 109/69; PULSE 89; RESP 18; TEMP 97.8
[2017-05-18 15:03] VITALS: O2SAT 99
== END 2017-05-16 02:40 ==
LOC: H.ER 13:06 → H.EROBSV 15:40 → OBSVTOIN 05-14 11:26 → INTOOBSV 05-14 11:26 → H.ERHOLD 05-14 11:26 → UNDODISIN 05-16 02:40
PROVIDERS: ADMIT Psychiatry & Neurology Psychiatry; ATTEND Emergency Medicine
DX: F20.0 Paranoid schizophrenia (principal); L60.0 Ingrowing nail; L03.032 Cellulitis of left toe; L03.031 Cellulitis of right toe; Z59.0 Homelessness; H54.7 Unspecified visual loss
CPT/HCPCS: 11721; 71010; 80053; 81003; 85025; 93005; 96372; 99285; G0378; G0480; J2060

== ENCOUNTER 2017-05-25 10:07 | Emergency (ER) | payer OTHER ==
[2017-05-25 10:18] VITALS: TEMP 97.6; BMI 21.4
[2017-05-25] MEDS ORDERED: Sodium Chloride 0.9% 1,000 ML IV STA (12:51)
--- NOTE | 2017-05-25 13:04 | ED PDOC ---
Syncope/Near Syncope/Dizziness Time Seen by Provider: 05/25/17 10:28 Chief Complaint (Nursing): Dizziness/Lightheaded Chief Complaint (Provider): Dizziness/Lightheaded History Per: Patient History/Exam Limitations: no limitations Onset/Duration Of Symptoms: Days (x1) Activity At Onset Of Symptoms: Walking Associated Symptoms Preceding Syncopal Episode: Lightheadedness, Other (Nausea ) Seizure Or Post-ictal Symptoms: None Fall Associated With With Symptoms: No Additional Complaint(s): Marco Antonio Cintron is a 46 year old non-domiciled male, with a past medical history of anxiety and schizophrenia, who presents to the emergency department complaining of lightheadedness associated with nausea ongoing since this morning secondary to waking all night. He denies any other medical complaints. Of note, patient was discharged yesterday from [facility] for involuntary psych admission. PMD: none provided. Past Medical History Reviewed: Historical Data, Nursing Documentation, Vital Signs Vital Signs: Last Vital Signs Temp 97.6 F 05/25/17 10:17 Pulse 99 H 05/25/17 10:17 Resp 16 05/25/17 10:17 BP 127/68 05/25/17 10:17 Pulse Ox 97 05/25/17 10:17 - Medical History PMH: Anxiety, Schizophrenia Denies: Diabetes, Hepatitis, HIV, HTN, Chronic Kidney Disease, Seizures, Sexually Transmitted Disease - Family History Family History: States: Unknown Family Hx - Social History Current smoker - smoking cessation education provided: Yes (Occasional smoker) Alcohol: None Drugs: Cannabis - Home Medications Home Medications: Ambulatory Orders Medication Instructions Recorded diaZEpam [Valium] 1 mg PO PRN PRN 05/14/17 - Allergies Allergies/Adverse Reactions: Allergies Allergy/AdvReac Type Severity Reaction Status Date / Time No Known Allergies Allergy Verified 05/25/17 10:33 Review of Systems ROS Statement: Except As Marked, All Systems Reviewed And Found Negative Gastrointestinal: Positive for: Nausea. Negative for: Vomiting Neurological: Positive for: Other (light headedness ) Physical Exam - Reviewed Nursing Documentation Reviewed: Yes Vital Signs Reviewed: Yes - Physical Exam Appears: Positive for: Well, Non-toxic, No Acute Distress Head Exam: Positive for: ATRAUMATIC, NORMAL INSPECTION, NORMOCEPHALIC Skin: Positive for: Normal Color, Warm, Dry Eye Exam: Positive for: EOMI, Normal appearance, PERRL ENT: Positive for: Normal ENT Inspection Neck: Positive for: Normal, Painless ROM Cardiovascular/Chest: Positive for: Regular Rate, Rhythm Respiratory: Positive for: CNT, Normal Breath Sounds Gastrointestinal/Abdominal: Positive for: Normal Exam, Bowel Sounds, Soft Back: Positive for: Normal Inspection Extremity: Positive for: Normal ROM Neurologic/Psych: Positive for: Alert, Oriented - Laboratory Results Result Diagrams: 05/25/17 13:10 05/25/17 13:10 - ECG O2 Sat by Pulse Oximetry: 97 (RA) Pulse Ox Interpretation: Normal Medical Decision Making Medical Decision Making: Initial Impression: lightheadedness Initial Plan: --EKG --Comp Metabolic Panel --Urine Dipstick --CBC w/ diff --NS IV 1000 ml at 1,000mls/hr --Zofran Inj 4mg IV stat --Crisis order evaluation --reevaluation Pt cleared by Crisis. Scribe Attestation: Documented by Humberto Hendrickson, acting as a scribe for Andie Lara MD. Provider Scribe Attestation: All medical record entries made by the Scribe were at my direction and personally dictated by me. I have reviewed the chart and agree that the record accurately reflects my personal performance of the history, physical exam, medical decision making, and the department course for this patient. I have also personally directed, reviewed, and agree with the discharge instructions and disposition. Disposition - Clinical Impression Clinical Impression: Schizophrenia - Disposition Referrals: [facility] [Outside] Disposition: Routine/Home Disposition Time: 14:04 Condition: STABLE Instructions: Schizophrenia (ED)
[2017-05-25 13:17] LABS: BASO # 0.1 K/uL (0.0-0.2); BASO % 0.6 % (0.0-2.0); EOS % 0.4 % (0.0-4.0); HEMOGLOBIN 13.6 g/dL (12.0-18.0); MEAN CELL VOLUME 101.6 fl (80.0-94.0); MEAN CORPUSCULAR HEMOGLOBIN 34.2 pg (27.0-31.0); MEAN CORPUSCULAR HGB CONC 33.6 g/dL (33.0-37.0); MEAN PLATELET VOLUME 7.1 fl (7.2-11.7); MONO # 0.8 K/uL (0.0-0.8); RBC 3.99 Mil/uL (4.40-5.90); RED CELL DISTRIBUTION WIDTH 13.8 % (11.5-14.5); WHITE BLOOD COUNT 9.8 K/uL (4.8-10.8)
[2017-05-25 13:27] LABS: ALB/GLOB RATIO 1.7 (1.0-2.1); ALBUMIN 4.3 g/dL (3.5-5.0); ALT/SGPT 42 U/L (21-72); AST/SGOT 23 U/L (17-59); BLOOD UREA NITROGEN 12 mg/dl (9-20); CALCIUM 9.3 mg/dL (8.4-10.2); GFR AFRICAN-AMERICAN > 60; GFR NON-AFRICAN AMERICAN > 60
[2017-05-25 14:29] VITALS: BP 134/84; PULSE 90; RESP 19
[2017-05-25 14:35] VITALS: O2SAT 97
--- NOTE | 2017-05-25 15:04 | CARD ---
APPROVED REPORT EKG Measurement Heart [id number] <Conclusion> Normal sinus rhythm Normal ECG
== END 2017-05-25 14:29 | disposition home or self-care (01) ==
LOC: H.ER 10:07
DX: F20.9 Schizophrenia, unspecified (principal); F41.9 Anxiety disorder, unspecified; F17.200 Nicotine dependence, unspecified, uncomplicated